=== PATIENT | female | born 1960 | race Caucasian/White ===

== ENCOUNTER 2018-01-21 14:12 | Inpatient (IN) | payer OTHER ==
[~2018-01-21] VITALS: Ht 165.1 cm; Wt 67.2 kg
--- NOTE | ~2018-01-21 | CON ---
[place], [place] REPORT OF CONSULTATION [id number] UNIT #: [id number] ROOM: 519 DOCTOR: JAMEEL DOUGHERTY MD BIRTHDATE: [birth year] DOS: 01/22/2018 REASON FOR CONSULTATION: Chest pain. HISTORY OF PRESENT ILLNESS: The patient is a 57-year-old woman who has a well-documented history of coronary artery disease. She is typically followed by Dr. Salazar at the [facility]. We were asked to see her because he was unavailable. The patient has had 4 stents in the past and initially presented with unstable angina in August of 2006. Her last catheterization in 11/2009 showed that the stents were patent and she was treated medically. She was doing well until about a week or so ago. She began experiencing increased fatigue with chest heaviness. This worsened when she was active. For the last 2-3 days, she has noticed that the pain has radiated into her jaw. She also has tightness in her throat, which gets worse with exertion and gets better with rest. She states that she felt like she was smothering or suffocating and that someone was squeezing her around the throat. Her symptoms got bad enough that she came to the Emergency Room yesterday. Her initial electrocardiograms and all subsequent electrocardiograms have shown normal findings. However, her initial troponin level was normal at 0.039. All subsequent troponin levels have been abnormal and rising. These have been 0.062, 0.104, 0.250, 0.395 and 0.482. In the hospital, she has been treated with heparin, topical nitrates, aspirin, statins and beta blockers. At rest, she feels pretty well, but with minimal exertion, her throat tightness and smothering sensation returns. She is therefore felt to be having a non-ST elevation myocardial infarction. She is at high risk for future cardiac damage and therefore, we strongly recommend that she undergo catheterization and revascularization. According to the Society For Coronary Angiography And Interventions, her indication is 3 with a score of 9. PAST MEDICAL HISTORY: Includes: 1. Atherosclerotic heart disease, cardiac catheterization 08/19/2006 showed a normal left main. The LAD had a 60% lesion and probably did receive a stent, although those details are not currently available. A large diagonal had an 80% stenosis, which did receive a stent. The circumflex was normal, but a large obtuse marginal was occluded and was stented. The right coronary artery had a 90% stenosis and received a stent. Reportedly, these were all bare metal stents, but those details are lacking. Her ejection fraction at that time was 45%. 2. Positive stress test prompted catheterization 02/03/2007, ejection fraction was 50%. LAD and left main were patent. The diagonal stent was patent. The marginal stent had a 40% in-stent stenosis. The right coronary artery had a 40-50% stenosis beyond the stent. She was treated medically. 3. An abnormal stress test in 11/2009 prompted another catheterization on 11/13/2009, ejection fraction was 50%. The LAD stent was patent. After the stent, there was a 50-60% stenosis. The diagonal stent was patent. The circumflex stent was patent. The proximal right coronary artery had a 50-60% stenosis. The distal stent was patent and she was treated medically. 4. Essential hypertension. [place], [place] REPORT OF CONSULTATION NAME: ISABEL BROWNING UNIT #: [id number] ROOM: [facility] DOCTOR: JAMEEL DOUGHERTY MD BIRTHDATE: [birth year] 5. Hyperlipidemia. 6. Cigarette abuse. The patient consumes about a half pack a day. FAMILY HISTORY: The patient's father at age of 57 from a heart attack. Her mother of lung cancer at age 72. MEDICATIONS: Prior to admission, Lipitor 10 mg every other day, BuSpar 7.5 mg p.r.n., isosorbide mononitrate 60 mg per day, lisinopril 5 mg per day, loratadine 10 mg at bedtime, metoprolol 50 mg per day, multivitamin daily and naproxen 500 mg per day. ALLERGIES: The patient lists an allergy to CODEINE. She also states that high dose statins cause muscle cramps. REVIEW OF SYSTEMS: The patient denies diplopia or loss of vision. She denies lightheadedness or syncope. She denies focal weakness. She has had tightness in her neck, arms and chest as noted above. She denies hemoptysis or hematemesis. She has been more short of breath, fatigue lately. She denies change in bowel or bladder habits. She does note that since her cholecystectomy 2 years ago, she has 2-3 bowel movements every morning, which are fairly loose. This has not changed recently. She denies blood in her stools or urine. She denies any peripheral edema or history of blood clots. She denies any skin rashes. Remainder of the review of systems is negative except as noted above. SOCIAL HISTORY: The patient is and lives with her . She does smoke about a half pack of cigarettes a day. She does not consume alcohol. 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 PHYSICAL EXAMINATION: GENERAL: The patient is a slender white female who is awake, alert and oriented. VITAL SIGNS: Pulse is 95 and regular, blood pressure is 160/90. She is afebrile. She weighs 67.2 kg and has a body mass index of 24.6. HEENT: Normocephalic and atraumatic. Extraocular muscles are intact. Sclerae are clear. Pupils equal, round and react to light. The oral mucosa is moist. Tongue is midline. NECK: Supple. She has no jugular distention. Carotids are full. There are no bruits. She has no neck or supraclavicular masses and no thyromegaly. LUNGS: Respirations were unlabored. Her chest is clear to auscultation and percussion. She has no presacral edema or chest wall tenderness. HEART: Has a regular rhythm. She has a fourth heart sound, but no third heart sound or murmur. The PMI is not displaced. There is no precordial heave, lift or thrill. ABDOMEN: Soft and normally active without masses, organomegaly or bruits. EXTREMITIES: Showed no edema. Peripheral pulses are easily palpated in the feet bilaterally. LABORATORY DATA: As noted above, her serial troponin levels have risen steadily from a normal level of 0.039 on admission to a current level of 0.482. This is consistent with a non-ST elevation myocardial infarction. [place], [place] REPORT OF CONSULTATION NAME: ISABEL BROWNING UNIT #: [id number] ROOM: [facility] DOCTOR: JAMEEL DOUGHERTY MD BIRTHDATE: [birth year] I reviewed her electrocardiograms, which showed no acute changes. Hemoglobin is 15.1, hematocrit 46.4. There are 8400 white cells and 201,000 platelets. Sodium is 140, potassium 4.0, chloride 108, CO2 of 31, BUN 9, creatinine 0.75. Sugar is 97. IMPRESSION: 1. Acute non-ST elevation myocardial infarction with continued chest pain despite medical therapy. 2. Essential hypertension. 3. Hyperlipidemia. 4. Cigarette abuse. 5. History of coronary artery disease status post 4 previous stents. PLAN: The patient is having active ischemia with a strong history for coronary artery disease. I think that her probability of having significant myocardial damage is high and therefore, I would strongly suggest she undergo catheterization and revascularization today. I have discussed this with the patient and her and they agree. Since she has had her previous work done at [facility], she has requested that she be transferred there for further management. I would continue a heparin drip, topical nitrates, beta blockers, etc. for the present time. Transfer should be arranged to [facility] as soon as possible. [facility] and I thank the hospitalist physicians for asking our advice regarding the patient's care. JAMEEL DOUGHERTY MD CM:CONSTR:REPORT OF CONSULTATION [id number] 01/22/18 0925 interface
[2018-01-21 14:12] VITALS: BP 186/85
[~2018-01-21 14:12] MED LIST: ALLERGY RELIEF10 M1 PO; ASPIRIN CHILDRE81 MG PO; ASPIRIN325 M2 PO; BUSPAR15 MG PO; BUSPAR5 MG PO; CEPHALEXIN500 M1 PO; FISH OIL 10001000 MG PO; FLEXERIL10 MG PO; ISOSORBIDE30 MG PO; METOPROLOL SR50 MG; MULTI VITAMINS1 TAB PO; NAPROSYN500 MG PO; NAPROXEN550 M1 PO; SIMVASTATIN80 MG PO; VICODIN 5/500 505 MG PO; ZESTRIL5 MG PO
[2018-01-21 14:34] LABS: BASO # 0.1 10*3/uL (0.0-0.1); BASO % 0.5 % (0.0-1.0); EOS # 0.1 10*3/uL (0.0-0.4); EOS % 1.3 % (1.0-4.0); HEMATOCRIT 41.3 % (37.0-47.0); HEMOGLOBIN 14.1 g/dl (12.0-16.0); LYMPH % 30.8 % (27.0-41.0); MEAN CELL VOLUME 88.8 fl (81.0-99.0); MEAN CORPUSCULAR HGB 30.3 pg (27.0-31.0); MEAN CORPUSCULAR HGB CONC 34.1 g/dl (33.0-37.0); MEAN PLATELET VOLUME 11.4 fl (9.6-12.3); MONO # 0.7 10*3/uL (0.1-1.0); MONO % 6.9 % (3.0-9.0); NEUT # 5.9 10*3/uL (2.3-7.9); NEUT % 60.3 % (47.0-73.0); PLATELET COUNT AUTOMATED 215 10*3/uL (130-400); RED BLOOD COUNT 4.65 10*6/uL (4.10-5.10); RED CELL DISTRI WIDTH 13.2 % (0-14.5); WHITE BLOOD COUNT 9.8 10*3/uL (4.8-10.8)
[2018-01-21 15:06] VITALS: BP 156/90
[2018-01-21 15:56] LABS: ACT PARTIAL THROMBO TIME 25.4 SECONDS (20.8-31.5); INTERNATIONAL NORM RATIO 0.9 (2.0-3.5)
[2018-01-21 16:02] LABS: ALBUMIN 4.4 gm/dl (3.1-4.5); ALKALINE PHOSPHATASE 127 U/L (45-117); BUN 9 mg/dl (7-24); CHLORIDE 108 mmol/L (98-107); CREATININE 0.85 mg/dL (0.55-1.02); LIPASE 144 U/L (73-393); POTASSIUM 3.8 mmol/L (3.5-5.1); SGOT/AST 21 IU/L (3-35); SGPT/ALT 25 U/L (12-78); SODIUM 140 mmol/L (136-145); TOTAL PROTEIN 7.8 gm/dL (6.4-8.2)
[2018-01-21 16:08] LABS: TROPONIN I 0.039 ng/ml (<0.045)
[2018-01-21] MEDS ORDERED: ASPIRIN81 M1 PO (16:37)
[2018-01-21 18:00] VITALS: BP 167/85
[2018-01-21] MEDS ORDERED: METOPROLOL TART50 M1 PO (18:18)
[2018-01-21] MEDS ORDERED: NAPROXEN500 M1 PO (18:19)
[2018-01-21] MEDS ORDERED: BUSPIRONE HCL7.5 MG PO (18:19)
[2018-01-21] MEDS ORDERED: MULTIVITAMINS1 EAC5 PO (18:20)
[2018-01-21] MEDS ORDERED: LIPITOR40 MG PO (18:20)
[2018-01-21] MEDS ORDERED: LIPITOR10 MG PO (18:21)
[2018-01-22] VITALS: BP 160/90
[2018-01-22 06:46] LABS: BASO % 0.5 % (0.0-1.0); EOS # 0.1 10*3/uL (0.0-0.4); EOS % 1.2 % (1.0-4.0); HEMATOCRIT 46.4 % (37.0-47.0); HEMOGLOBIN 15.1 g/dl (12.0-16.0); LYMPH # 2.9 10*3/uL (1.3-4.4); LYMPH % 34.8 % (27.0-41.0); MEAN CELL VOLUME 90.8 fl (81.0-99.0); MEAN CORPUSCULAR HGB 29.5 pg (27.0-31.0); MEAN CORPUSCULAR HGB CONC 32.5 g/dl (33.0-37.0); MEAN PLATELET VOLUME 10.7 fl (9.6-12.3); MONO # 0.7 10*3/uL (0.1-1.0); MONO % 7.8 % (3.0-9.0); NEUT # 4.7 10*3/uL (2.3-7.9); NEUT % 55.6 % (47.0-73.0); PLATELET COUNT AUTOMATED 201 10*3/uL (130-400); RED BLOOD COUNT 5.11 10*6/uL (4.10-5.10); WHITE BLOOD COUNT 8.4 10*3/uL (4.8-10.8)
[2018-01-22 07:04] LABS: ALBUMIN 4.3 gm/dl (3.1-4.5); BUN 9 mg/dl (7-24); CHLORIDE 108 mmol/L (98-107); CHOLESTEROL 183 mg/dL (<200); CREATININE 0.75 mg/dL (0.55-1.02); PHOSPHOROUS 3.7 mg/dL (2.5-4.9); SGOT/AST 23 IU/L (3-35); SGPT/ALT 25 U/L (12-78); SODIUM 140 mmol/L (136-145); TRIGLYCERIDES 259 mg/dl (<150); VLDL CHOLESTEROL 52 mg/dL (6-40)
[2018-01-22 07:12] LABS: ALKALINE PHOSPHATASE 129 U/L (45-117); FREE T4 0.97 ng/dl (0.76-1.46); HDL CHOLESTEROL 45 mg/dl (40-60); LDL CHOLESTEROL 86 mg/dL (9-159); TOTAL PROTEIN 7.6 gm/dL (6.4-8.2)
[2018-01-22 08:00] VITALS: BP 132/88
[2018-01-22 08:21] LABS: VITAMIN D, 25-HYDROXY 26.9 ng/mL (30-100)
== END 2018-01-22 10:28 | disposition short-term general hospital (02) | DRG 282 ==
LOC: ED 14:12 → 5E 16:04 → EDHOLD 16:04 → 5E 17:19
PROVIDERS: Emergency Medicine; Registered Nurse
DX: I21.4 Non-ST elevation (NSTEMI) myocardial infarction (principal); E78.00 Pure hypercholesterolemia, unspecified; F41.1 Generalized anxiety disorder; I25.10 Atherosclerotic heart disease of native coronary artery without angina pectoris; F17.210 Nicotine dependence, cigarettes, uncomplicated; G89.29 Other chronic pain; M54.9 Dorsalgia, unspecified; E78.5 Hyperlipidemia, unspecified; I10 Essential (primary) hypertension; I25.2 Old myocardial infarction; Z95.5 Presence of coronary angioplasty implant and graft; Z88.5 Allergy status to narcotic agent; Z79.82 Long term (current) use of aspirin; Z79.899 Other long term (current) drug therapy; Z90.49 Acquired absence of other specified parts of digestive tract; Z98.51 Tubal ligation status; Z98.1 Arthrodesis status; Z82.49 Family history of ischemic heart disease and other diseases of the circulatory system; Z80.3 Family history of malignant neoplasm of breast; Z80.1 Family history of malignant neoplasm of trachea, bronchus and lung